=== PATIENT | male | born 1975 | race African-American/Black ===

== ENCOUNTER 2021-04-02 12:10 | Inpatient (IN) | payer OTHER ==
[~2021-04-02] VITALS: Ht 188 cm; Wt 74.8 kg
[2021-04-02] VITALS (48 sets, daily range): BP systolic 55–168; BP diastolic 38–110
--- NOTE | ~2021-04-02 | EKG ---
[facility] [place] [employer] [employer] [address] ELECTROCARDIOGRAM REPORT Name: AMADOR CEDILLO Room #: 243-P ADM IN M.R.#: [id number] Admission: 04/02/21 Attend Phys: Violetta Claire Discharge: Date of : 75 Report #: [id number] [facility] ED Test Date: 2021-04-02 Test Time: 13:44:42 Pat Name: AMADOR CEDILLO Department: Room: 243 P Gender: M Institution Director: KHADAR : 1975 Requested By: Vidal Nath Order Number: [id number] MD: Measurements Intervals [place] Rate: 89 P: 76 MA: 178 QRS: 76 QRSD: 131 T: 63 QT: 435 QTc: 530 Interpretive Statements Sinus rhythm Nonspecific intraventricular conduction delay Nonspecific T abnrm, anterolateral leads No previous ECG available for comparison [email or web address] By: 1344 1344 Epiphany MD Mendoza /EPI
[2021-04-02 13:55] LABS: HEMATOCRIT 34.5 % (42.0-52.0); HEMOGLOBIN 11.5 gm/dL (14.0-18.0); MCH 32.6 pg (26.0-34.0); MCHC 33.5 g/dL (28.0-37.0); MCV 97.4 fL (80.0-100.0); PLATELET COUNT 524 thou/uL (150-400); RBC 3.54 mil/uL (4.50-6.00); RDW 14.1 % (10.5-14.5); WBC 3.5 thou/uL (4.0-11.0)
[2021-04-02 14:07] LABS: ALBUMIN 1.9 g/dL (3.4-5.0); CALCIUM 7.6 mg/dL (8.5-10.1); CREATININE 12.2 mg/dL (0.7-1.3); TOTAL BILIRUBIN 13.4 mg/dL (0.2-1.0)
[2021-04-02 14:10] LABS: POTASSIUM 7.6 mmol/L (3.5-5.1)
[2021-04-02 14:15] LABS: HCO3 6.4 mmol/L (22.0-26.0); PO2 83.8 mmHg (80.0-100.0)
[2021-04-02 14:16] LABS: PCO2 19.9 mmHg (35.0-45.0); pH 7.124 (7.360-7.450)
[2021-04-02 15:16] LABS: APTT 29.6 Seconds (24.5-32.8); INR 1.24; PROTIME 13.4 Seconds (10.5-12.1)
[2021-04-02 15:17] LABS: ABSOLUTE NEUTROPHILS 3.3 thou/uL (1.4-8.2)
[2021-04-02 15:18] LABS: LARGE PLATELETS RARE
[2021-04-02 15:37] LABS: SALICYLATE < 2.8 mg/dL (2.8-20.0)
[2021-04-02 17:45] LABS: ALBUMIN 1.8 g/dL (3.4-5.0); CALCIUM 6.4 mg/dL (8.5-10.1); CREATININE 11.9 mg/dL (0.7-1.3); PHOSPHORUS 20.6 mg/dL (2.6-4.7)
[2021-04-02 17:50] LABS: POTASSIUM 7.6 mmol/L (3.5-5.1)
[2021-04-02 21:04] LABS: BE(vivo) -7.8 mmol/L (-2 to +3); HCO3 17.5 mmol/L (22.0-26.0); PCO2 35.1 mmHg (35.0-45.0); PO2 275.4 mmHg (80.0-100.0); sO2 99.6 % (92.0-98.0)
[2021-04-02 21:05] LABS: pH 7.316 (7.360-7.450)
--- NOTE | 2021-04-02 21:40 | NUR ---
1800-RECEIVED PT FROM E.R. INTO 246, MOVED TO 242 ALMOST IMMED,DIALYSIS PERSONEL AT BEDSIDE PRIOR TO PT'S ARRIVAL. DIALYSIS HOOKUP NOT DRAINING. PT IN ACUTE RESP DISTRESS, MOVING QUICKLY FROM 4L/NC TO 8L HIFL/NC TO BIPAP. HAD BEEN UP IN UNIT,STAT CALL PLACED & ORDER FOR INTUBATION. PT RR HIGH 40'S,VERY OBTUNDED,UNABLE TO COMPLETE A WORD WHEN HE DID RESPOND.USING ABD ACCESSORY MUSCLES & SL STERNAL RETRACTIONS NOTED.E.R. PHYSICAIN UP TO INTUBATE W/O PROBLEM,PT ELLYN WELL. OGT PLACED,STAT PCXR DONE. CALLED & INFORMED OF STAT CONSULT.HD REMAINS IN PROGRESS,NO UF. PT'S AX TEMP 92.6,PT SHAKING & CHILLING ON ARRIVAL INTO ICU. WARM BLANKETS THEN ALON HUGGER APPLIED.CARE TURNED OVER TO ONCOMING RN.--VW
--- NOTE | 2021-04-02 21:55 | NUR ---
VASCULAR ACCESS CONSULTED FOR IJ PLACEMENT. CONSENT SIGNED AND TIMEOUT PREFORMED WITH JEMIMA BARNES PRIOR TO START. 6 FR TRIPLE LUMEN IJ PLACED WITHOUT DIFFICULTY. GUIDEWIRE REMOVED INTACT. PATIENT TOLERATED WELL. ALL LUMENS FLUSH AND DRAW WELL. POSITIVE BILATERAL LUNG SLIDE POST INSERTION. X-RAY CONFIRMED PLACEMENT. OKAY TO USE IJ.
[2021-04-03] VITALS (99 sets, daily range): BP systolic 84–186; BP diastolic 46–95
--- NOTE | 2021-04-03 00:22 | NUR ---
ASSUMED CARE OF PT AT 1899. SPOKE TO PT MOTHER JAXON AT 2049. INFORMED HER OF PT STATUS. OBTAINED VERBAL CONSENT FOR CENTRAL LINE. WILL CONTINUE POC.
--- NOTE | 2021-04-03 00:30 | NUR ---
DR DAVIS AND DR BRAR AT BEDSIDE. NEW ORDERS RECIEVED AND IMPLEMENTED.
[2021-04-03 03:10] LABS: URINE BILIRUBIN 2+ (Negative); URINE BLOOD 1+ (Negative); URINE CLARITY SL CLOUDY; URINE COLOR YELLOW; URINE GLUCOSE-RANDOM* TRACE (Negative); URINE KETONES NEGATIVE (Negative); URINE LEUKOCYTES-REFLEX NEGATIVE (Negative); URINE NITRITE-REFLEX NEGATIVE (Negative); URINE PROTEIN (DIPSTICK) 3+ (Negative); URINE SPECIFIC GRAVITY >= 1.030 (1.005-1.035)
[2021-04-03 04:33] LABS: AMP/METHAMP Negative (Negative); BARBITURATES Negative (Negative); BENZODIAZEPINES Negative (Negative); COCAINE Negative (Negative); METHADONE Negative (Negative); OPIATES Negative (Negative); PCP Negative (Negative)
[2021-04-03 04:39] LABS: BACTERIA-REFLEX 1-9 Few /HPF (None Seen); CASTS None Seen /LPF (None Seen); MUCUS 4-6 Moderate strn/LPF (None Seen); SQUAMOUS 4-10 Moderate /LPF (0-3); URIC ACID CRYSTALS 0-3 Few /LPF (None Seen); URINE RBC 3-10 Few /HPF (NONE SEEN); URINE WBC-REFLEX 0-5 Rare /HPF (0-5)
[2021-04-03 05:20] LABS: BE(vivo) -10.8 mmol/L (-2 to +3); HCO3 15.6 mmol/L (22.0-26.0); PCO2 36.2 mmHg (35.0-45.0); PO2 81.3 mmHg (80.0-100.0); pH 7.251 (7.360-7.450); sO2 94.4 % (92.0-98.0)
[2021-04-03 05:30] LABS: INR 1.1; PROTIME 11.9 Seconds (10.5-12.1)
[2021-04-03 05:32] LABS: HEMOGLOBIN 9.7 gm/dL (14.0-18.0); WBC 2.3 thou/uL (4.0-11.0)
[2021-04-03 05:34] LABS: HEMATOCRIT 27.5 % (42.0-52.0); MCH 33.7 pg (26.0-34.0); MCHC 35.2 g/dL (28.0-37.0); MCV 95.7 fL (80.0-100.0); RBC 2.87 mil/uL (4.50-6.00); RDW 13.9 % (10.5-14.5)
[2021-04-03 06:04] LABS: PLATELET COUNT 443 thou/uL (150-400)
[2021-04-03 06:46] LABS: ALBUMIN 1.5 g/dL (3.4-5.0); CALCIUM 6.7 mg/dL (8.5-10.1); MAGNESIUM 2.4 mg/dL (1.8-2.4); TOTAL BILIRUBIN 10.6 mg/dL (0.2-1.0)
[2021-04-03 06:47] LABS: CREATININE 7.8 mg/dL (0.7-1.3)
[2021-04-03 06:48] LABS: POTASSIUM 6.1 mmol/L (3.5-5.1)
--- NOTE | 2021-04-03 07:43 | EKG ---
[place] [address] [place] [address] ELECTROCARDIOGRAM REPORT Name: AMADOR CEDILLO Room #: 243-P ADM IN M.R.#: [id number] Admission: 04/02/21 Attend Phys: Violetta Claire Discharge: Date of : 75 Report #: [id number] [facility] Test Date: 2021-04-02 Test Time: 21:57:27 Pat Name: AMADOR CEDILLO Department: Room: [facility] Gender: M Promos Executive Producer: : 1975 Requested By: Katherine Lim Order Number: [id number] MD: Roddy Garcia Measurements Intervals [place] Rate: 136 P: 93 ME: 122 QRS: 84 QRSD: 86 T: 38 QT: 284 QTc: 428 Interpretive Statements Sinus tachycardia LAE, consider biatrial enlargement No previous ECG available for comparison Electronically Signed On 04-03-2021 7:43:07 PHP WEB DEVELOPER by Roddy Garcia [email or web address] <ELECTRONICALLY SIGNED> By: Roddy Garcia MD, [facility] 04/03/21 0743 2157 2157 Roddy Garcia MD, FACAdriana /EPI
[2021-04-03 07:55] LABS: APTT 29.1 Seconds (24.5-32.8)
[2021-04-03 12:51] LABS: CALCIUM 7.4 mg/dL (8.5-10.1); MAGNESIUM 1.8 mg/dL (1.8-2.4)
[2021-04-03 14:24] LABS: ABSOLUTE NEUTROPHILS 1.1 thou/uL (1.4-8.2)
[2021-04-03 14:25] LABS: ANISOCYTOSIS 2+; POIKILOCYTOSIS 2+; TARGET CELLS 1+
[2021-04-03 14:26] LABS: MACROCYTES 2+
--- NOTE | 2021-04-03 17:11 | NUR ---
PT ADMITTED RELATED TO SEPSIS, PNEUMONIA, NORMA. CM REVIEWED CHART AND SPOKE WITH CARE TEAM. PT'S CARE DISCUSSED IN ICU ROUNDS THIS DAY. PT IS INTUBATED AND SEDATED. PT TO HAVE CT ABD AND PELVIS THIS DAY. ULTRASOUND AND THORACENTESIS. PT'S FIO2 60% PEEP TO BE INCREASED TO 8. PT'S MOTHER IS THE BEST CONTACT NURSING HAS SPOKEN WITH HER. CM FOLLOWING.
--- NOTE | 2021-04-03 18:48 | HC ---
[facility] [place] [address] CONSULTATION Name: AMADOR CEDILLO Room #: 243-P ADM IN M.R.#: [id number] Admission: 04/02/21 Attend Phys: Violetta Claire Discharge: Date of : 75 Report #: [id number] THIS REPORT FOR: cc: FAM - No family physician/PCP FAM - No family physician/PCP Brandon Coleman MD ~ DATE OF SERVICE: 04/02/2021 INFECTIOUS DISEASE CONSULTATION REASON FOR CONSULTATION: I was asked to evaluate concerning respiratory failure and sepsis. HISTORY OF PRESENT ILLNESS: The patient is a 45-year-old who presents with a 2-week history of generalized weakness and dyspnea. No report of fever or chills. He does have underlying history of asthma, alcohol abuse, marijuana abuse and tobacco use. The patient was intubated and sedated, unable to give any further details. History was discussed with nursing staff, respiratory therapy staff at the bedside. The patient was found to be in acute renal failure and underwent acute dialysis today. Respiratory failure worsened and now intubated on 100% FiO2. Chest x-ray showed dense right lower lobe pulmonary infiltrate with possible effusion. There has been a moderate amount of tracheal secretions. No sample has been sent yet for culture. He was placed on broad antibiotic coverage. PAST MEDICAL HISTORY: Asthma and alcohol abuse. ALLERGIES: None known. MEDICATIONS: As noted on his MAR, which were reviewed. FAMILY HISTORY: No family history available. SOCIAL HISTORY: I have been able to obtain includes tobacco use, marijuana use, alcohol abuse. Unclear if he has employment or any other family members available. REVIEW OF SYSTEMS: The patient was unable to give any details. He does have oral intubation and oral gastric tube to suction. He has a right IJ dialysis catheter in place. Indwelling Bautista catheter. He has peripheral IVs in place. He is now on IV sedation. PHYSICAL EXAMINATION: GENERAL: He was hypothermic, hemodynamically stable. He was sedated. HEENT: Scleral icterus. Mouth without mucositis. SKIN: Without rash or decubitus. No palpable adenopathy. [facility] [address] [place] [address] CONSULTATION Name: AMADOR CEIDLLO Room #: 243-P ADM IN M.R.#: [id number] Admission: 04/02/21 Attend Phys: Violetta Claire Discharge: Date of : 75 Report #: [id number] NECK: Supple. LUNGS: Consolidation in the right base and mid chest. HEART: Regular, without murmur. ABDOMEN: Soft. Liver edge was palpable. No other masses appreciated. External genitalia without mass or lesion. He had indwelling Bautista catheter. EXTREMITIES: Without clubbing, cyanosis or edema. Was able to move all extremities and is currently in restraints. LABORATORY DATA: Reviewed, noting sodium of 122, creatinine of 12.2, bilirubin of 13.4. Hemoglobin 11.5, white count of 3500 with 29% bands. Influenza and COVID screening negative. Chest x-ray, right lower lobe consolidation. Cultures are currently pending. IMPRESSION: A 45-year-old with multisystem failure, right lower lobe consolidation. I suspect aspiration, community-acquired pneumonia. Acute kidney injury in addition to liver failure and alcohol abuse, suspecting hepatorenal syndrome. Underlying asthma and polysubstance abuse. RECOMMENDATION: We will continue with broad antibiotic coverage adjusted for his renal failure. Obtain blood and sputum cultures. Further assess chest cavity for evidence of pleural effusion on the right. Aspirate if possible for culture. Continue to monitor in the ICU. Full support. Alcohol withdrawal. Monitoring. Dialysis as necessary. The patient has been evaluated by Pulmonary Critical Care and Nephrology. I have discussed with ICU team regarding treatment approach. <ELECTRONICALLY SIGNED> By: Brandon Coleman MD 04/03/21 1848 10 0130 Brandon Coleman MD /nt
[2021-04-04] VITALS (92 sets, daily range): BP systolic 100–142; BP diastolic 56–89
[2021-04-04 03:06] LABS: HAV IgM AB (ANTI-HAV IgM) Negative (Negative); HEPATITIS B SURFACE AG Negative (Negative)
[2021-04-04 04:06] LABS: HEP B SURFACE Ab(ANTI-HBS Non Reactive (()); HEPATITIS B SURFACE AG Negative (Negative); HEPATITIS C VIRUS AB <0.1 (0.0-0.9)
[2021-04-04 06:15] LABS: HEMATOCRIT 25.5 % (42.0-52.0); HEMOGLOBIN 8.8 gm/dL (14.0-18.0); MCH 32.6 pg (26.0-34.0); MCHC 34.5 g/dL (28.0-37.0); MCV 94.4 fL (80.0-100.0); PLATELET COUNT 408 thou/uL (150-400); RDW 13.9 % (10.5-14.5)
[2021-04-04 06:21] LABS: WBC 11.8 thou/uL (4.0-11.0)
[2021-04-04 06:45] LABS: CALCIUM 7.4 mg/dL (8.5-10.1); POTASSIUM 5.2 mmol/L (3.5-5.1)
[2021-04-04 07:49] LABS: ABSOLUTE NEUTROPHILS 11.2 thou/uL (1.4-8.2); METAMYELOCYTES 2 %; PLATELET ESTIMATE NORMAL; TARGET CELLS 2+
[2021-04-04 08:02] LABS: HEPATITIS C VIRUS AB <0.1
[2021-04-04 09:23] LABS: ALBUMIN 1.4 g/dL (3.4-5.0); DIRECT BILIRUBIN 6.5 mg/dL (<0.1-0.2); TOTAL PROTEIN 6.8 g/dL (6.4-8.2)
[2021-04-04 09:39] LABS: INR 1.04; PROTIME 11.3 Seconds (10.5-12.1)
--- NOTE | 2021-04-04 11:50 | EKG ---
[place] [address] [facility] [place] [address] ELECTROCARDIOGRAM REPORT Name: AMADOR CEDILLO Room #: 243- ADM IN M.R.#: [id number] Admission: 04/02/21 Attend Phys: Violetta Claire Discharge: Date of : 75 Report #: [id number] [facility] ED Test Date: 2021-04-02 Test Time: 13:44:42 Pat Name: AMADOR CEDILLO Department: Room: 243 P Gender: M Oil House Attendant: KHADAR : 1975 Requested By: Katherine Lim Order Number: [id number] MD: Brayan El Measurements Intervals [place] Rate: 89 P: 76 WV: 178 QRS: 76 QRSD: 131 T: 63 QT: 435 QTc: 530 Interpretive Statements Sinus rhythm Nonspecific intraventricular conduction delay No previous ECG available for comparison Electronically Signed On 04-04-2021 11:50:02 GEOLOGICAL SPECIALIST by Brayan El [email or web address] <ELECTRONICALLY SIGNED> By: Brayan El MD, [facility] 04/04/21 1150 1344 1344 Brayan El MD, FAC /EPI
--- NOTE | 2021-04-04 11:55 | EKG ---
[place] [address] [facility] [place] [address] ELECTROCARDIOGRAM REPORT Name: AMADOR ECDILLO Room #: 243- ADM IN M.R.#: [id number] Admission: 04/02/21 Attend Phys: Violetta Claire Discharge: Date of : 75 Report #: [id number] [facility] Test Date: 2021-04-03 Test Time: 12:33:05 Pat Name: AMADOR CEDILLO Department: Room: 243 P Gender: M Foundry Worker: DEDRA : 1975 Requested By: Vidal Nath Order Number: [id number] MD: Brayan El Measurements Intervals [place] Rate: 126 P: 77 NE: 113 QRS: 55 QRSD: 85 T: 29 QT: 325 QTc: 471 Interpretive Statements Sinus tachycardia Left ventricular hypertrophy Compared to ECG 04/02/2021 21:57:27 No significant change was found Electronically Signed On 04-04-2021 11:55:03 CEMENT FINISHER HELPER by Brayan El [email or web address] <ELECTRONICALLY SIGNED> By: Brayan El MD, [facility] 04/04/21 1155 1233 1233 Brayan El MD, FACC /EPI
[2021-04-04 12:02] LABS: BE(vivo) 5.1 mmol/L (-2 to +3); HCO3 29.9 mmol/L (22.0-26.0); PO2 66.8 mmHg (80.0-100.0); sO2 93.8 % (92.0-98.0)
--- NOTE | 2021-04-04 12:18 | 2DMMODE ---
[facility] [address] [place] [address] 2 D/M-MODE ECHOCARDIOGRAM Name: AMADOR CEDILLO Room #: 243-P ADM IN M.R.#: [id number] Admission: 04/02/21 Attend Phys: Violetta Claire Discharge: Date of : 75 Report #: [id number] THIS REPORT FOR: cc: JERE - No family physician/PCP FAM - No family physician/PCP Brayan El MD [facility] ~ APPROVED REPORT Study performed: 04/04/2021 10:23:30 EXAM: Comprehensive 2D, Doppler, and color-flow Echocardiogram Patient Location: Bedside Room #: 243 Status: on-call BSA: 2.08 HR: 87 bpm BP: 108/69 mmHg Rhythm: NSR Other Information Study Quality: Adequate Technically limited study due to patient on ventilator, low parasternal window. Risk Factors: Cardiac Risk Factors: Smoking, ETOH Indications Sepsis Respiratory Failure 2D Dimensions IVSd: 13.69 (7-11mm) LVOT Diam: 20.00 (18-24mm) LVDd: 39.58 mm PWd: 14.40 (7-11mm) LVDs: 29.42 (25-40mm) Aortic Root: 30.64 mm LV Single Plane 4CH: 60.01 % LV Single Plane 2CH: 57.10 % Biplane EF: 59.8 % Volumes Left Atrial Volume (Systole) Single Plane 4CH: 29.39 mL Single Plane 2CH: 35.03 mL [facility] [address] [place] [address] 2 D/M-MODE ECHOCARDIOGRAM Name: AMADOR CEDILLO Room #: 243-P [facility] IN M.R.#: [id number] Admission: 04/02/21 Attend Phys: Violetta Wang Discharge: Date of : 75 Report #: [id number] Index: 19.00 mL/m2 Aortic Valve AoV Peak Mamadou.: 1.29 m/s AO Peak Gr.: 6.67 mmHg LVOT Max P.86 mmHg LVOT Max V: 1.21 m/s AME Vmax: 2.96 cm2 Mitral Valve E/A Ratio: 1.5 MV Decel. Time: 214.87 ms MV E Max Mamaodu.: 0.61 m/s MV A Mamadou.: 0.42 m/s MV PHT: 62.31 ms IVRT: 62.28 ms TDI E/Lateral E': 7.63 E/Medial E': 7.63 Medial E' Mamadou.: 0.08 m/s Lateral E' Mamadou.: 0.08 m/s Pulmonary Valve PV Peak Mamadou.: 0.96 m/s PV Peak Gr.: 3.72 mmHg Tricuspid Valve TR Peak Mamadou.: 1.96 m/s TR Peak Gr.: 15.32 mmHg Left Ventricle The left ventricle is normal size. There is normal LV segmental wall motion. Moderate concentric left ventricular hypertrophy. The left ventricular systolic function is normal. The left ventricular ejection fraction is within the normal range. Intracavitary gradient of approximately 50 mmHg, probably from the hyperdynamic LV and LVH LVEF is >70%. The left ventricular diastolic function is normal. Right Ventricle The right ventricle is normal size. The right ventricular systolic function is normal. Atria The left atrium size is normal. The right atrium size is normal. Aortic Valve [facility] [address] [place] [address] 2 D/M-MODE ECHOCARDIOGRAM Name: AMADOR CEDILLO Room #: 243-P ADM IN M.R.#: [id number] Admission: 04/02/21 Attend Phys: Violetta Wang Discharge: Date of : 75 Report #: [id number] The aortic valve is normal in structure. No aortic regurgitation is present. There is no aortic valvular stenosis. Mitral Valve The mitral valve is normal in structure. There is no mitral valve regurgitation noted. No evidence of mitral valve stenosis. Tricuspid Valve The tricuspid valve is normal in structure. Trace tricuspid regurgitation. Unable to assess PA pressure. Pulmonic Valve The pulmonary valve is normal in structure. There is no pulmonic valvular regurgitation. Great Vessels The aortic root is normal in size. Ascending aorta is not well visualized. Pt. is on a ventilator. Pericardium There is no pericardial effusion. <Conclusion> The left ventricular systolic function is hyperdynamic LVEF is >70%. The left ventricular ejection fraction is within the normal range. Intracavitary LV gradient of approximately 50 mmHg, probably from the hyperdynamic LV and LVH There is normal LV segmental wall motion. Moderate concentric left ventricular hypertrophy. The aortic valve is normal in structure. No aortic regurgitation or stenosis. The mitral valve is normal in structure. No mitral valve regurgitation. Unable to assess pulmonary artery pressure. There is no pericardial effusion. <ELECTRONICALLY SIGNED> By: Brayan El MD, FACC 04/04/211216 16 16 Brayan El MD, FACC /INF
--- NOTE | 2021-04-04 13:02 | NUR ---
SPOKE WITH PATIENT'S MOTHER, JAXON, FROM [id number] AND SHE WAS UPDATED AND EDUCATED ON THE PATIENT'S CONDITION AND PLAN OF CARE.
--- NOTE | 2021-04-04 18:18 | NUR ---
WEANING DOWN LEVOPHED. ALL SEDATION IS OFF, SLIGHT WITHDRAWAL TO DEEP NAIL BED PRESSURE. +COUGH AND GAG. WILL CONTINUE TO MONITOR.
[2021-04-05] VITALS (36 sets, daily range): BP systolic 97–135; BP diastolic 53–77
[2021-04-05 10:27] LABS: BE(vivo) 0.3 mmol/L (-2 to +3); PCO2 34.9 mmHg (35.0-45.0); PO2 65.8 mmHg (80.0-100.0); pH 7.456 (7.360-7.450); sO2 94.1 % (92.0-98.0)
--- NOTE | 2021-04-05 20:05 | NUR ---
FAMILY AT BEDSIDE THROUGH OUT THE DAY. PATIENT REMAINED HEMODYNAMICALLY STABLE. 1 [address] CPAP TRAIL WITH SEDATION VACATION. PATIENT BECAME RESTLESS WITH STIMULATION AND PLACED BACK ON SEDATION TO TOLERATE VENT. PLAN FOR DIALYSIS TOMORROW 04/06. MINIMAL URINE OUTPUT, THICK AND BROWN IN COLOR. REPORT GIVEN TO ON COMING NURSE.
[2021-04-06] VITALS (26 sets, daily range): BP systolic 105–141; BP diastolic 68–87
[2021-04-06 05:26] LABS: ALBUMIN 1.4 g/dL (3.4-5.0); CALCIUM 8.9 mg/dL (8.5-10.1); PHOSPHORUS 11.5 mg/dL (2.6-4.7); POTASSIUM 4.4 mmol/L (3.5-5.1)
[2021-04-06 05:30] LABS: CREATININE 6.7 mg/dL (0.7-1.3)
--- NOTE | 2021-04-06 09:55 | NUR ---
Nutrition: If pt not extubated today, REC initiate Nepro tube feeds to reach goal rate of 50 mL/hr.
[2021-04-06 13:40] LABS: BE(vivo) 1.8 mmol/L (-2 to +3); HCO3 24.8 mmol/L (22.0-26.0); PCO2 32.2 mmHg (35.0-45.0); PO2 87.9 mmHg (80.0-100.0); pH 7.504 (7.360-7.450); sO2 97.5 % (92.0-98.0)
--- NOTE | 2021-04-06 13:51 | NUR ---
POST CPAP ABG RESULTS COMMUNICATED TO DR. JACOB
--- NOTE | 2021-04-06 15:21 | NUR ---
extubated by rt at [address] skelton orders
[2021-04-06 21:05] LABS: SYPHILIS AB Non Reactive (Non Reactive)
[2021-04-07] VITALS (24 sets, daily range): BP systolic 113–152; BP diastolic 68–84
[2021-04-07 05:17] LABS: HEMATOCRIT 23.2 % (42.0-52.0); HEMOGLOBIN 7.9 gm/dL (14.0-18.0); MCH 32.4 pg (26.0-34.0); MCHC 34.1 g/dL (28.0-37.0); MCV 94.9 fL (80.0-100.0); RBC 2.45 mil/uL (4.50-6.00); RDW 13.9 % (10.5-14.5); WBC 6.2 thou/uL (4.0-11.0)
[2021-04-07 05:31] LABS: ALBUMIN 1.3 g/dL (3.4-5.0); CALCIUM 8.5 mg/dL (8.5-10.1); PHOSPHORUS 7.9 mg/dL (2.5-4.9); TOTAL BILIRUBIN 2.4 mg/dL (0.2-1.0); TOTAL PROTEIN 6.2 g/dL (6.4-8.2)
[2021-04-07 05:37] LABS: INR 1.07; PROTIME 11.6 Seconds (10.5-12.1)
[2021-04-07 05:59] LABS: CREATININE 4.8 mg/dL (0.7-1.3)
[2021-04-07 09:55] LABS: BE(vivo) 2.7 mmol/L (-2 to +3); HCO3 26.4 mmol/L (22.0-26.0); PCO2 36.9 mmHg (35.0-45.0); PO2 68.9 mmHg (80.0-100.0); pH 7.473 (7.360-7.450); sO2 94.9 % (92.0-98.0)
--- NOTE | 2021-04-07 10:25 | NUR ---
Dr. Coleman notified on patient's ABG and mental status this morning.
[2021-04-07 15:07] LABS: HIV 1 AB Positive (Negative); HIV 2 AB Negative (Negative); HIV ANTIBODY Reactive (Non Reactive)
--- NOTE | 2021-04-07 16:56 | NUR ---
CM REVIEWED CHART AND SPOKE WITH NURSE. PT'S CARE WAS DISCUSSED IN ICU ROUNDS THIS AM. PT WAS EXTUBATED YESTERDAY. PT IS SEDATED AND IN RESTRAINTS WHEN SEDATION IS REDUCED HE BECOMES ANXIOUS AND PULLS AT THINGS. PT IS NPO ST SAW PT. PT IS ON BIPAP FACESHIELD AT 50%. PT'S MOTHER VISITED THIS AFTERNOON. CM FOLLOWING
--- NOTE | 2021-04-07 18:43 | NUR ---
Pt neurologically drowsy and lethargic. Pt pulling the facesheild off the face and try to sit up in bed and roll from side to side and pull the wires. Pt not opening eyes to verbal command nor following commands. Pt scored 11 on the CIWA protoccol. Pt was given prn activan and was titrated up the precedex gtt. This RN could not get temperature on the patient. Rectal probe was inserted and was not accurate. Pt was kept on lynnette hugger and finally temperature was up to 97.[address] Coleman notified about patient mentation and desat episode. ABG was obtained and ABG was within the normal limits. Dr. Coleman notified about the ABG. No dialysis today per Dr. Puckett. Pt urine output adequate today. continue to monitor.
[2021-04-08] VITALS (23 sets, daily range): BP systolic 112–151; BP diastolic 69–95
[2021-04-08 06:38] LABS: ALBUMIN 1.5 g/dL (3.4-5.0); CALCIUM 8.7 mg/dL (8.5-10.1); CREATININE 4.4 mg/dL (0.7-1.3); PHOSPHORUS 9.1 mg/dL (2.5-4.9); POTASSIUM 3.6 mmol/L (3.5-5.1)
--- NOTE | 2021-04-08 14:28 | NUR ---
THIS RN SPOKE WITH TERESA, THE PATIENT'S FATHER, OVER THE PHONE FROM [phone] AND HE WAS UPDATED AND EDUCATED ON THE PATIENT'S CONDITION AND PLAN OF CARE.
--- NOTE | 2021-04-08 17:57 | NUR ---
PATIENT SLOWLY PROGRESSING TOWARDS THE PLAN OF CARE EVIDENCED BY IMPROVING MENTAL STATUS AND DECREASED NEED FOR PRECEDEX.
[2021-04-09] VITALS (15 sets, daily range): BP systolic 139–161; BP diastolic 90–104
--- NOTE | 2021-04-09 00:38 | NUR ---
SPOKE TO PT'S SISTER AND MOTHER, JAXON, AT 2121 AND UPDATED THEM ON PT STATUS. THEY EXPRESSED THAT THEY WISH TO SPEAK TO A PHYSICIAN TOMORROW REGARDING PT'S PROGRESS. THIS RN SUGGESTED THEY BE HERE TOMORROW AT 0800. WILL PASS ALONG TO AM RN THAT FAMILY WISHES TO BE CALLED.
[2021-04-09 04:28] LABS: HCO3 26.1 mmol/L (22.0-26.0); PCO2 34.4 mmHg (35.0-45.0); PO2 79.4 mmHg (80.0-100.0); pH 7.498 (7.360-7.450); sO2 96.7 % (92.0-98.0)
[2021-04-09 05:26] LABS: ABSOLUTE NEUTROPHILS 6.4 thou/uL (1.4-8.2); BASOPHILS 0.1 % (0.0-2.0); EOSINOPHILS 0.1 % (0.0-3.0); HEMATOCRIT 27.9 % (42.0-52.0); HEMOGLOBIN 9.2 gm/dL (14.0-18.0); LYMPHOCYTES 1.8 % (24.0-44.0); MCH 31.9 pg (26.0-34.0); MCHC 32.8 g/dL (28.0-37.0); MCV 97.3 fL (80.0-100.0); MONOCYTES 1.5 % (1.0-8.0); PLATELET COUNT 322 thou/uL (150-400); POLYS 96.5 % (36.0-66.0); RBC 2.87 mil/uL (4.50-6.00); RDW 13.9 % (10.5-14.5); WBC 6.6 thou/uL (4.0-11.0)
[2021-04-09 05:43] LABS: ALBUMIN 1.7 g/dL (3.4-5.0); CALCIUM 8.8 mg/dL (8.5-10.1); PHOSPHORUS 7.7 mg/dL (2.5-4.9); TOTAL BILIRUBIN 2.2 mg/dL (0.2-1.0)
[2021-04-09 06:01] LABS: CREATININE 3.1 mg/dL (0.7-1.3)
[2021-04-09 06:02] LABS: POTASSIUM 2.9 mmol/L (3.5-5.1)
--- NOTE | 2021-04-09 12:00 | NUR ---
Cm reviewed chart and spoke with care team this day. PT's care discussed during ICU rounds. It was indicted that pt is on micafungin, penicillin g. PT is on 4L oxygen per nasal cannula. Cm called and spoke with pt's mother Bernie Garcia . Cm role introduced. She indicated that pt had lived alone in a ground floor apartment prior to admission. 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 She indicated that he is uninsured and doesn't have a pcp as far as she knows of. PT's mother indicted that pt has an adult son with a learning disability and a sister. Cm following regarding dc planning needs.
--- NOTE | 2021-04-09 20:19 | NUR ---
0700: ASSUMED CARE OF PATIENT AT THIS TIME. PT RESTING IN BED, PRECEDEX GTT INFUSING, BILATERAL WRIST RESTRAINTS IN PLACE. PT FOLLOWING COMMANDS, WILL ATTEMPT TO WEAN PRECEDEX TOLERATED BY PT. ASSESSMENT COMPLETE DOCUMENTED. VSS. 0900: PT CONTINUES TO FOLLOW COMMMANDS, NO IMPULSIVITY NOTED, PT ABLE TO VEBALIZE NEED FOR CONTINUATION OF LINES/HENDERSON AND REPORTS HE WILL NOT TOUCH THEM/PULL THEM. RESTRAINTS AND PRECEDEX GTT OFF AT THIS TIME. 1900: NO ACUTE EVENTS THROUGHOUT REMAINDER OF SHIFT. VSS DOCUMENTED. PT DENIES PAIN THROUGHOUT SHIFT. PT WITH IMPROVEMENT OF SPEECH AND MENTATION SHIFT PROGRESSED. FAMILY VISITED TODAY. PER RENAL NOTE, HOPING FOR NO FURTHER NEED FOR HD. PLAN FOR DISCONTINUATION OF HD CATHETER AND IJ IF THIS OCCURS.
[2021-04-10] VITALS (14 sets, daily range): BP systolic 129–153; BP diastolic 92–105
--- NOTE | 2021-04-10 06:06 | NUR ---
PT RESTING QUIETLY, NOT IMPULSIVE, FOLLOWS COMMANDS, TURNING SELF IN BED, VSS, NO C/O PAIN, 0530 WALKED IN AND FOUND PT SITTING AT FOOT OF BED WITH LEGS DANGLING THRU BED RAIL, WHEN ASKED WHERE HE WAS GOING HE STATED HE WAS GOING HOME, PT ABLE TO SCOOT HIMSELF BACK UP IN THE BED BUT SATS DROPPED TO 87 O2 TURNED UP TO 4L/NC AND SATS UP TO 92/93 %, STATES HE DIDN'T WANT TO PULL ANY LINES OUT BUT HES NOT FEELING STRONG ENOUGH YET TO GO HOME. BED ALARM PLACED BACK ON AND PT RESTING QUIETLY, IV FLUIDS CON'T TO INFUSE IN L IJ, WILL CON'T TO MONITOR PER PPOC.
[2021-04-10 06:19] LABS: ALBUMIN 1.7 g/dL (3.4-5.0); CALCIUM 8.7 mg/dL (8.5-10.1); CREATININE 2.2 mg/dL (0.7-1.3); POTASSIUM 3.2 mmol/L (3.5-5.1)
--- NOTE | 2021-04-10 11:06 | NUR ---
DR. MEREDITH AT BEDSIDE. VERBAL ORDER TO TRANSFER PT TO MS/TELE. TELLOAY TO DC HENDERSON CATHETER, HD CATHETER, AND IJ PER DR. MEREDITH. RN TO CONTACT IV THERAPY FOR DISCONTINUATION OF CVCS.
--- NOTE | 2021-04-10 12:31 | NUR ---
VAT CONSULTED TO REMOVE HIS RT IJ HD CATH AND LT IJ CL. BOTH REMOVED WITHOUT INCIDENT PER PROTOCOL
--- NOTE | 2021-04-10 17:52 | NUR ---
pt arrived to room 434 from ICU. Pt is A & O x4. Pt robel has IV fluids. Pt is 4 L of 02 per nasal cannula. Pt is able to make needs known. Pt denies pain/discomfort
--- NOTE | 2021-04-10 18:22 | NUR ---
0700: ASSUMED CARE OF PATIENT AT THIS TIME. REPORT RECEIVED BY OFFGOING RN. ASSESSMENT COMPLETE DOCUMENTED. DR. PIMENTEL AT BEDSIDE, VERBAL ORDERS TO HAVE HD CATHETER DISCONTINUED AND INCREASE D5 INFUSION TO 200ML/HR. 0845: INTERDISCIPLINARY ROUNDS OCCURRED, PLAN FOR POSSIBLE TRANSFER TO FLOOR TODAY 0900: SOLID WASTE DIVISION SUPERVISOR AT BEDSIDE; NEW ORDERS FOR MECHANICAL SOFT DIET/NECTAR THICKENED FLUIDS 1100: DISCUSSED POC WITH DR. MEREDITH. PT PROGRESSING TOWARDS POC TO TRANSFER NOW THAT OFF PRECEDEX GTT AND HD CATH TO BE REMOVED. VERBAL ORDER TO DC LEFT IJ AND MAINTAIN PERIPHERALS, OKAY TO DC HENDERSON CATHETER 1400: PT AT BEDSIDE AND PT UP TO CHAIR 1630: PT TRANSFERRED TO ROOM 434 AT THIS TIME. REPORT PROVIDED TO RN ON NEW UNIT, FAMILY AWARE OF TRANSFER THEY WERE VISITING DURING THIS TIME.
[2021-04-11 00:28] VITALS: BP 156/93
[2021-04-11 06:09] LABS: HEMATOCRIT 29.9 % (42.0-52.0); HEMOGLOBIN 9.6 gm/dL (14.0-18.0); MCH 31.9 pg (26.0-34.0); MCV 99.8 fL (80.0-100.0); RDW 13.8 % (10.5-14.5)
[2021-04-11 06:18] LABS: ALBUMIN 1.9 g/dL (3.4-5.0); CALCIUM 8.3 mg/dL (8.5-10.1); CREATININE 1.7 mg/dL (0.7-1.3); PHOSPHORUS 4.1 mg/dL (2.6-4.7); POTASSIUM 3.5 mmol/L (3.5-5.1)
--- NOTE | 2021-04-11 06:28 | NUR ---
ASSUMED CARE AT 1900, PT LAYING COMFORTABLY IN BED, REPORTS NO PAIN OR DISCOMFORT, COMLIANT WITH TX, NO ADVERSE REACTION NOTED, CALL LIGHT AND PERSONAL BELOMGINGS WITHIN REACH, ON MODIFIED DIET, STAYED UP ALL NIGHT, WILL CONTINUE TO MONITOR.
[2021-04-11 07:24] VITALS: BP 148/95
--- NOTE | 2021-04-11 10:18 | NUR ---
Assumed care of pt at 0700. Pt alert but forgetful. On 4L O2. IV antibiotics infusing. Pt states she feels better. Good appetite. Call light within reach. Fall precautions in place. Will continue to monitor.
[2021-04-11 19:00] VITALS: BP 148/88
[2021-04-11 19:07] VITALS: BP 148/88
[2021-04-12 05:51] LABS: ALBUMIN 1.9 g/dL (3.4-5.0); CALCIUM 8.3 mg/dL (8.5-10.1); CREATININE 1.5 mg/dL (0.7-1.3); PHOSPHORUS 4.3 mg/dL (2.6-4.7); POTASSIUM 3.5 mmol/L (3.5-5.1)
--- NOTE | 2021-04-12 07:28 | NUR ---
PT REMAINS ON CO, RESTING COMFORTABLY LAYING IN BED, COMPLIANT TO TX, NO ADVERSE REACTION NOTED, TOILETED NEEDED, STAYED UP ALL NIGHT, A & OX 2-3 WITH CONFUSION, USES URINAL FOR ELIMINATION, CONTINUE ON IV THERAPY. WILL CONTINUE TO MONITOR.
[2021-04-12 07:35] VITALS: BP 144/113
[2021-04-12 12:52] VITALS: BP 144/113
--- NOTE | 2021-04-12 13:28 | NUR ---
ASSUMED PT CARE THIS AM. PT IS ALERT & ORIENTED X2 SELF AND TIME AND CONFUSE AT TIMES. PT HAS IV SITE ON R WRIST SALINE LOCKED. PT USES URINAL. PT IS ON ROOM AIR AT 96% SPO2. PT WANTED TO GO HOME AND REASSURED PT AND INFORMED PT THAT PT MOM WILL BE HERE TODAY. GIVEN MEDICATION WITHOUT DIFFUCULTIES. PT IS CURRENTLY ON THE BED WATCHING TV, BED ON THE LOWEST POSITION, SIDE RAILS UP, CALL LIGHT WITHIN REACH. WILL CONTINUE TO MONITOR PT. FOLLOW POC.
[2021-04-12 17:06] VITALS: BP 155/100
[2021-04-12 19:13] VITALS: BP 150/92
[2021-04-12 20:19] VITALS: BP 150/92
[2021-04-13] VITALS (23 sets, daily range): BP systolic 122–174; BP diastolic 83–111
--- NOTE | 2021-04-13 03:34 | NUR ---
UPON SHIFT REPORT, PT FAMILY VISITING AT BEDSIDE, NO REPORT OF NEEDS OR OBSERVATION OF CONCERN AT THAT TIME. UPON SHIFT ASSESSMENT, PT AOX4, RESPONDING TO ORIENTATION PROMPTS APPROPRIATELY, OTHERWISE INTERMITTENTLY FORGETFUL, INCONGRUENT AND INAPPROPRIATE CONVERSATIONS NOTED. PT DENIES PAIN AND SOB WHILE ON ROOM AIR. PT TOLERATING PO INTAKE OF FLUIDS AND MECHANICAL ALTERED GROUND DIET WITHOUT ISSUE. PT WITHOUT NAUSEA OR EMESIS. PT INCONTINENT OF URINE, INTERMITTENTLY USING URINAL AT BEDSIDE. PT RESTING IN BED THROUGHOUT SHIFT, FREQUENT REPOSITIONING ENCOURAGED, PT NOTED TO SHIFT INDEPENDENTLY. SENSATION INTACT, CAPILLARY REFILL LESS THAN 3SEC, PERIPHERAL PULSES PALPABLE IN ALL EXTREMITIES. THROUGHOUT SHIFT, PT NOTED TO BECOME RESTLESS, DIFFICULT TO CONSOLE AND REDIRECT, OBSERVED TAKING OFF NAVAL AIRCREWMAN OPERATOR AND TOUCHING STAFF ONLY BED CONTROLS. PRN SITTER UTILIZED WHEN PT RECEIVING IV ANTIBIOTICS, IV REMAINS SALINE LOCKED OTHERWISE. PT GIVEN PRN PO ATIVAN Q4HR, PRN IV HALDOL Q6HR WITH PRN IV ATIVAN Q4HR AVAILABLE. IV TO RIGHT WRIST NOTED TO CLOT OFF, PT REFUSING DISCONTINUATION OF IV, PT REFUSING NEW IV SITE AT THIS TIME. PT ENCOURAGED TO NOTIFY STAFF FOR ALL NEEDS, CALL LIGHT WITHIN REACH, BED ALARM ON, BED LOCKED IN LOWEST POSITION, ROOM REMAINS NEAR NURSES STATION, FREQUENT MONITORING WILL CONTINUE.
[2021-04-13 08:54] LABS: BE(vivo) 3.9 mmol/L (-2 to +3); HCO3 26.7 mmol/L (22.0-26.0); PCO2 33.5 mmHg (35.0-45.0); PO2 60.1 mmHg (80.0-100.0); pH 7.519 (7.360-7.450); sO2 93.6 % (92.0-98.0)
--- NOTE | 2021-04-13 08:59 | EKG ---
[place] [address] [facility] [place] [address] ELECTROCARDIOGRAM REPORT Name: AMADOR CEDILLO Room #: 435- ADM IN M.R.#: [id number] Admission: 04/02/21 Attend Phys: Violetta Claire Discharge: Date of : 75 Report #: [id number] [facility] Test Date: 2021-04-13 Test Time: 08:52:22 Pat Name: AMADOR CEDILLO Department: Room: 435 P Gender: M Gin Operator: DEDRA : 1975 Requested By: Alanis Spears Order Number: [id number] MD: Brayan El Measurements Intervals [place] Rate: 126 P: 102 UT: 90 QRS: 82 QRSD: 77 T: 257 QT: 280 QTc: 406 Interpretive Statements Sinus tachycardia LVH with secondary repolarization abnormality ST depression, consider ischemia, diffuse lds Compared to ECG 04/03/2021 12:33:05 ST (T wave) deviation now present Electronically Signed On 04-13-2021 8:59:40 CERTIFIED NURSING ASSISTANT INSTRUCTOR by Brayan El [email or web address] <ELECTRONICALLY SIGNED> By: Brayan El MD, [facility] 1259 1 Brayan El MD, [facility] /EPI
--- NOTE | 2021-04-13 09:08 | NUR ---
Pt TRANSFERRING TO ICU. WILL PLACE ON HOLD AND AWAIT NEW ORDERS TO RESUME WHEN APPROPRIATE
[2021-04-13 09:10] LABS: ABSOLUTE NEUTROPHILS 13.7 thou/uL (1.4-8.2); BASOPHILS 0.4 % (0.0-2.0); EOSINOPHILS 0.6 % (0.0-3.0); HEMATOCRIT 31.9 % (42.0-52.0); LYMPHOCYTES 2.8 % (24.0-44.0); MCHC 31.2 g/dL (28.0-37.0); MCV 102.6 fL (80.0-100.0); MONOCYTES 1.6 % (1.0-8.0); POLYS 94.6 % (36.0-66.0); RBC 3.11 mil/uL (4.50-6.00); WBC 14.5 thou/uL (4.0-11.0)
[2021-04-13 09:12] LABS: PLATELET COUNT 382 thou/uL (150-400)
[2021-04-13 09:14] LABS: CALCIUM 8.7 mg/dL (8.5-10.1); CREATININE 1.4 mg/dL (0.7-1.3); POTASSIUM 3.2 mmol/L (3.5-5.1)
[2021-04-13 09:20] LABS: ALBUMIN 2.1 g/dL (3.4-5.0); TOTAL BILIRUBIN 1.8 mg/dL (0.2-1.0); TOTAL PROTEIN 7.4 g/dL (6.4-8.2)
[2021-04-13 09:56] LABS: APTT 24.2 Seconds (24.5-32.8); INR 1.08; PROTIME 11.7 Seconds (10.5-12.1)
--- NOTE | 2021-04-13 10:00 | NUR ---
Rapid response today, anticipated transfer to icu. Discussed during los with the attending physician.
--- NOTE | 2021-04-13 11:30 | NUR ---
MACHINE WIPER CALLED THIS MORNING FOR LABORED BREATHING, INCREASED O2 NEEDS. SEE FLOWSHEET FOR DETAILS. PT TO TX TO ICU POST CHEST TUBE PLACEMENT.
--- NOTE | 2021-04-13 13:42 | NUR ---
PATIENT ARRIVED TO ICU AT APPROX 1125 THIS MORNING FROM IR AFTER HAVING A RAPID RESPONSE CALLED ON HIM DUE TO INCREASED HR, HTN, AND HIGH RESPIRATORY RATE, CXR SHOWED RIGHT SIDED PNEUMO, CHEST TUBE PLACED IN IR ON RIGHT SIDE. PT WILL OPEN EYES WHEN SHAKEN OR YELL HIS NAME, MAKES SOUNDS, REFLEXES TO PAINFUL STIMULI OTHER THAN THAT IS UNRESPONSIVE. DR. DAVIS AWARE OF PATIENT IN ICU, CVP, CENTRAL LINE PLACED. PROVIDER ALSO AWARE OF PATIENT LOW CVP, 1000ML NACL ORDERED. PATIENT BREATHING IN MID 20'S RANGE ON SIMPLE FACE MASK AT 40%. HR REMAINS IN LOW 100'S, WAS 130 ON ARRIVAL, CHEST TUBE SHOWS INTERMITTMENT BUBBLING PROVIDER AWARE. WILL CONTINUE TO FOLLOW POC.
--- NOTE | 2021-04-13 20:04 | NUR ---
0700 REPORT RECEIVED FROM PROGRAMMING ENGINEER NURSE. REPORT STATED A&0X4 WITH CONFUSION, FORGETFUL. PT IS ELOPMENT RISK, WITH A PRN SITTER IF NEEDED. NON-PRODUCTIVE COUGH REPORTED BY PROGRAMMING ENGINEER. REPORT GIVEN THAT PT IS HIV +. 0715 PT BECAME INCREASINGLY MORE AGITATED, RESTLESS, AND NOT ABLE TO STAY IN BED, IMPULSIVE. PT HAS 2LNC IN PLACE, BUT APPEARS TO BE IN A LITTLE DISTRESS. RESPIRATIONS INCREASED. DR. MEREDITH CALLED AT 0815, ATIVAN FOR ANXIETY. RESPIRATORY CALLED FOR BREATHING TREATMENT. LUNGS SOUNDED SEVERLY DIMINISHED/TIGHT. RAPID RESPONSE CALLED SHORTLY AFTER. TEAM AT BEDSIDE. DR. BERRY AND DR. MEREDITH AT BEDSIDE. ORDERS RECEIVED AND ENTERED INTO COMPUTER. IV WAS THEN PLACED, DUE TO LOSS DURING PROGRAMMING ENGINEER. NRB PLACED AT 0905, CHEST XR SHOWED PNEUMOTHORAX PER RADIOLOGIST. IR CALLED FOR STAT CHEST TUBE PLACEMENT. 926 DR[address] MEREDITH CALLED TO INFORM THAT IR WAS NOT AVAILABLE FOR AT LEAST [address] MEREDITH STATED THAT SHOULD BE OK TO WAIT. 0935 IR CALLED AGAIN TO STATE THAT IT NEEDED TO BE DONE DANY, AND NOT TO WAIT HOURS FOR PLACEMENT. 0937 ANA MARÍA COATES WAS CALLED AND UPDATED WITH PATIENT'S CONDITION, PLAN FOR CHEST TUBE PLACEMENT, AND TRANSFER TO ICU. [phone]. 0949 IR HERE FOR PATIENT. 0950 CALLED ICU FOR REPORT, NURSE NOT AVAILABLE. 1005 CALLED REPORT TO ICU NURSE, VISHNU, WHO WAS ALSO AT THE RAPID RESPONSE THAT WE CALLED. VISHNU STATED HE HAD TAKEN CARE OF PT WHILE IN ICU AND WAS FAMILIAR WITH PATIENT.
[2021-04-14] VITALS (26 sets, daily range): BP systolic 116–154; BP diastolic 72–98
--- NOTE | 2021-04-14 03:05 | NUR ---
SPOKE WITH Edin MCMANUS INDUSTRIAL MAINTENANCE REPAIRER TO COFIRM CONTINUANCE OF D10 DRIP. D10 DRIP PARAMETERS STATE TO BE GIVEN FOR BS <80. PT NPO S/P CHEST TUBE INSERTION. GIVEN VERBAL ORDERS TO CONTINUE GTT.
--- NOTE | 2021-04-14 04:45 | NUR ---
AT APPROX 0430 HENDERSON PLACED D/T PT AMS, INCONTINENCE-VOID X3 IN BED, FOR ACCURATE I/0 DOCUMENTATION, AND TO MAINTAIN SKIN INTEGRITY. PERICARE GIVEN AND PROTOCOL FOLLOWED DURING INSERTION.
[2021-04-14 05:26] LABS: HEMATOCRIT 23.6 % (42.0-52.0); MCH 33.6 pg (26.0-34.0); MCHC 32.9 g/dL (28.0-37.0); MCV 102.1 fL (80.0-100.0); RBC 2.31 mil/uL (4.50-6.00); RDW 14.8 % (10.5-14.5); WBC 6.6 thou/uL (4.0-11.0)
[2021-04-14 05:27] LABS: HEMOGLOBIN 7.8 gm/dL (14.0-18.0)
[2021-04-14 06:12] LABS: CALCIUM 8.3 mg/dL (8.5-10.1); CREATININE 1.2 mg/dL (0.7-1.3); POTASSIUM 3.3 mmol/L (3.5-5.1)
--- NOTE | 2021-04-14 08:12 | NUR ---
PT AMS/CONFUSED, DID TRY TO GET OUT OF BED A FEW TIMES, AND REMOVE MEDICAL EQUIPMENT - BUT REDIRECTABLE. PT 2L NC WITH 02 SATS 96 AND ABOVE. PT DID REMOVE N/C SEVERAL TIMES AND 02 SATS REMAINED IN HIGH 90S. RT SIDED CHEST TUBE PLACED / WITH SEROSANGUINEOUS OUTPUT NOTED SET T0 -20 WITH NO AIR LEAK. PT URINE OUTPUT ADEQUATE - ESTIMATE 775 OUTPUT FOR THE SHIFT. PT SLEPT MOST OF THE SHIFT WITH PRN ATIVAN GIVEN TWICE THROUGHOUT SHIFT. WILL CONTINUE TO MONITOR AND FOLLOW POC.
--- NOTE | 2021-04-14 15:43 | NUR ---
Cm reviewed chart and spoke with nurse. Pt's care discussed during icu rounds this day. Pt had spontaneous pneumothorax (04/13) pt had right plural pigtail placed. Pt is on RA. Pt on mechsft diet and nectar thick liquids. Dr. shah indicated he had spoken with pt's Mother and Father who are divorded yesterday. PT, OT, and ST orders for cog were entered this day. Care team indicating that pt is medically stable to transfer out of ICU once a bed is open. Cm had asked 5n liaison to follow pt as he is uninsured and may need post acute care stay at some point prior to dc. Cm following regarding dc planning.
[2021-04-15] VITALS (34 sets, daily range): BP systolic 128–164; BP diastolic 76–95
[2021-04-15 06:32] LABS: HEMOGLOBIN 6.7 gm/dL (14.0-18.0); WBC 4.7 thou/uL (4.0-11.0)
[2021-04-15 06:33] LABS: HEMATOCRIT 20.3 % (42.0-52.0); MCH 33.4 pg (26.0-34.0); MCHC 32.9 g/dL (28.0-37.0); MCV 101.7 fL (80.0-100.0); RDW 14.7 % (10.5-14.5)
[2021-04-15 06:54] LABS: CALCIUM 7.5 mg/dL (8.5-10.1); CREATININE 1.1 mg/dL (0.7-1.3); POTASSIUM 3.1 mmol/L (3.5-5.1)
--- NOTE | 2021-04-15 07:24 | NUR ---
ASSUME CARE 1900. PT/VITALS STABLE. DENIES ANY PAIN. A/O TO PERSN, PLACE AND TIME. FOLLOWA COMMANDS AND ANASWERS QUESTIONS, APPROPRIATELY. ISHAAN. ON MONITOR. TOLERATING BIPAP AT 100% FIO2. PT IN PRONE POSITION THROUGH THE NIGHT. ASSESSMENT CHARTED. PROGRESSING WELL WITH POC. PLAN IS TO CONTINUE TO MONITOR AND MANAGE RESP FUNCTION/ELECTROLYTES. WILL CONITUE TO FOLLOW WITH POC
--- NOTE | 2021-04-15 07:38 | NUR ---
ASSUME CARE 1900. PT/VITALS STABLE. DENEIS ANY PAIN. A/O X 3. FORGETFULNESS NOTED. ANSWERS QUESTIONS APPROPRIATELY AND FOLLOWS COMMANDS. SR ON MONITOR. ST NOTED WITH ACTIVITY. DIARRHEA NOTED. ROOM AIR WITH SATS IN MID-HIGH 90s. ASSESSMENT CHARTED. PROGRESSING WELL WITH POC. CHEST TUBE IN PLAVCE WITH NO TIDALING OR AIR LEAK, TO NEGATIVE 20 SUCTION. SEROUS DRAIANGE NOTED. HENDERSON IN PLACE. ADEQUATE URINE OUTPUT. PLAN IS TO TRANSFEER PT TO MEDSURGE UNIT WHEN BED AVAILABLE. WILL CONTINUE TO MONITOR AND FOLLOW WITH POC
[2021-04-15 10:07] LABS: CD3 % 77.7 % (57.5-86.2); CD4 % 2.4 % (30.8-58.5); CD4:CD8 0.03 (0.92-3.72)
[2021-04-15 10:29] LABS: EOSINOPHILS 0.2 % (0.0-3.0); RBC 2.06 mil/uL (4.50-6.00)
[2021-04-15 10:31] LABS: BASOPHILS 0.3 % (0.0-2.0); HEMATOCRIT 20.8 % (42.0-52.0); HEMOGLOBIN 6.6 gm/dL (14.0-18.0); LYMPHOCYTES 5.7 % (24.0-44.0); MCHC 31.7 g/dL (28.0-37.0); MONOCYTES 6.2 % (1.0-8.0); PLATELET COUNT 309 thou/uL (150-400); POLYS 87.6 % (36.0-66.0); RDW 14.6 % (10.5-14.5); WBC 4.6 thou/uL (4.0-11.0)
[2021-04-15 20:49] LABS: HEMOGLOBIN 8.1 gm/dL (14.0-18.0)
--- NOTE | 2021-04-15 22:27 | NUR ---
PT ORIENTED X2-3, FORGETFUL BUT COOPERATIVE. DENIES ANY PAIN OR SOA. RIGHT LATERAL CHEST TUBE PATENT AND INTACT. VSS. AFEBRILE. SPO2> 92% ON RA. FALL PRECAUTIONS IN PLACE. REPORT GIVEN TO MOLLY QUACH AROUND 2214.
[2021-04-16] VITALS (9 sets, daily range): BP systolic 122–138; BP diastolic 58–89
--- NOTE | 2021-04-16 09:58 | HC ---
[facility] [place] [address] CONSULTATION Name: AMADOR CEDILLO Room #: [facility] ADM IN M.R.#: [id number] Admission: 04/02/21 Attend Phys: Violetta Claire Discharge: Date of : 75 Report #: [id number] THIS REPORT FOR: cc: FAM - No family physician/PCP FAM - No family physician/PCP Ketan Hamilton ~ DATE OF SERVICE: 04/13/2021 CONSULTING DOCTOR: Dr. Nath. OTHER DOCTORS ON PATIENT'S CASE: Dr. Giron, Dr. Mcmillan, Dr. Coleman, Dr. Han, Dr. Goddard, and Dr. Lyons. HISTORY OF PRESENT ILLNESS: The patient is a pleasant 45-year-old male with a history of asthma and alcohol, tobacco and marijuana abuse. The patient states that he has had prior to admission about 2 weeks of loss of appetite, increased dyspnea and shortness of breath. The patient arrives in the Emergency Department and found to be in acute kidney injury with a creatinine of 12.12, respiratory distress. Potassium levels greater at 7.6. The patient was given emergent hemodialysis and at that time, went into a more profound respiratory failure and had to emergently intubate the patient. The patient was subsequently admitted to ICU, remained on the ventilation until 04/06. Yesterday was found to have near complete collapse of right lung, pleural pigtail placed to right lung space by Interventional Radiology yesterday with near resolution. The patient still remains with an apical pneumothorax on the right side, pleural chest tube draining 250 mL of serosanguineous fluid in the last 12 hours with a negative air leak. The patient at this time is now on room air oxygen. The patient does remain tachycardic from 110-130's appears to have sinus tachycardia. PAST MEDICAL HISTORY: Asthma, ETOH abuse, marijuana use, tobacco use. PAST SURGICAL HISTORY: The patient reports having a left wrist internal fixation as a child. SOCIAL HISTORY: He is single, has one child 24 years of age, healthy as the patient can recall, 1 pack a day smoker x21 years. Alcohol daily at range of 3-6 beers with daily marijuana use. FAMILY HISTORY: Mother is living 65 years of age without any health issues as per patient. Father 66 years of age, history of hypertension and asthma. ALLERGIES: The patient denies any medical allergies. MEDICATIONS: His home medications are as reported albuterol. [address] [address] CONSULTATION Name: AMADOR CEDILLO Room #: 241-P [facility] IN M.R.#: [id number] Admission: 04/02/21 Attend Phys: Violetta Claire Discharge: Date of : 75 Report #: [id number] REVIEW OF SYSTEMS: The patient complains of fatigue, difficulty sleeping, decreased appetite. HEENT: Denies any headache, vertigo or hearing loss. RESPIRATORY: Reports shortness of breath and dyspnea on exertion. Denies any orthopnea. Reports wheezing and coughing. Coughing is nonproductive at this time. CARDIOVASCULAR: The patient did complain of chest pain, which is no longer going on at this point, but it was prior to admission. He denies any jaw pain, arm pain or murmurs. SKIN: Denies any rashes, psoriasis or eczema. ENDOCRINE: Denies cold feet, night sweats. Does complain of some lack of concentration. GASTROINTESTINAL: Denies nausea, vomiting. Does have some diarrhea and denies constipation. GENITOURINARY: Denies urinary frequency, bloody urination or painful urination; however, currently has a Bautista catheter in and complaints are relative prior to admission. NEUROLOGIC: Denies any seizures or neuropathies. PSYCHOLOGIC: Denies any hallucination, depression or anxiety. MUSCULOSKELETAL: Denies joint pain, stiffness or swelling. IMMUNOLOGIC: Denies any lupus, rheumatoid arthritis or celiac disease. PHYSICAL EXAMINATION: VITAL SIGNS: Blood pressure is 154/94, pulse rate 130, respiratory rate 20, pulse rate also shows P waves, sinus rhythm, sinus tachycardia. The patient is currently on room air. The patient with an O2 sat of 100% currently. GENERAL: The patient is well-developed, well-nourished, has normal speech and mentation. HEENT: Eyes are PERRLA. He is normocephalic. Gaze appearing conjugate in all positions. No evidence of nystagmus. CARDIOVASCULAR: Regular rate and rhythm, tachycardic. No murmurs, gallops, or thrills noted. No carotid bruits detected. LUNGS: Crackles to the right lower lobe. Upper lobes clear. Left lower lobe clear. ABDOMEN: Soft, nontender. Bowel sounds are present in all 4 quadrants. MUSCULOSKELETAL: He moves all 4 extremities with 5/5 strength. NEUROLOGIC: Cranial nerves 2-12 are examined and intact. LABORATORY DATA: Today, sodium 153, potassium 3.3, chloride 116, CO2 of 28, BUN is 27, creatinine is 1.7, creatinine previously 12.2 on arrival on 04/02 and glucose 144. White blood cells 6.6, hemoglobin 7.8, hematocrit 23.6, platelets are 323. The patient does currently have a Bautista catheter in place. He is currently on room air as previously mentioned. ASSESSMENT: Spontaneous pneumothorax secondary to right lower lobe pneumonia. [address] [address] CONSULTATION Name: AMADOR CEDILLO Room #: 241-P [facility] IN M..#: [id number] Admission: 04/02/21 Attend Phys: Violetta Claire Discharge: Date of : 75 Report #: [id number] The patient currently has a pleural pigtail placed without air leak with 250 mL of serosanguineous fluid drainage in the last 12 hours, acute respiratory failure, improving. Acute kidney injury, resolved. The patient has on admission Gram-positive bacteremia, septic shock, which is improved. Streptococcus pneumoniae pneumonia, right lower lobe and find on lab positive human immunodeficiency virus antibodies. PLAN: The patient is currently on micafungin and Pen G as per Infectious Disease, has a right pleural pigtail placed with a small apical pneumo on chest x-ray with 250 mL drainage of serosanguineous fluid in the last 12 hours without an air leak. On CTA standpoint, Dr. Marin will see the patient later today. We will continue to monitor pleural chest tube. We will keep an eye on suction at this point. Get a chest x-ray in the morning. <ELECTRONICALLY SIGNED> By: IRINA Lu 04/16/21 0958 [id number] IRINA Lu /nt
--- NOTE | 2021-04-16 11:54 | NUR ---
CM REVIEWED CHART AND SPOKE WITH NURSE. PT IS NOT ICU STATUS SO CARE NOT DISCUSSED IN ROUNDS THIS DAY. [facility] HAD MET WITH PT AND HAD COMPLETED A [place] MEDICAID APPLICATION. PT HAD CHEST TUBE THAT IS WATER SEALED AND HE IS TOLERATING THAT. CARE TEAM INDICTED CHEST X RAY IN AM AND THAT THEY ANTICPATE POSSIBLE REMOVAL SOON. PT IS ON MICAFUNGIN AND PENICILLIN. PT NEWLY DIAGNISED HIV AND NECROTIZING PNA. PT MAY NEED ACUTE REHAB AT SOME POINT PRIOR TO DC. THERAPY HAD BEEN REORDERED ALTHOUGH CARE TEAM INDICATED EVALS AREN'T YET APPROPRIATE. CM FOLLOWING REGARDING DC PLANNING NEEDS.
--- NOTE | 2021-04-16 19:07 | NUR ---
SPOKE TO PATIENT MOTHER, JAXON, TODAY TO UPDATE PATIENT CONDITION AND POC. SWITCHED CT FROM SUCTION TO WATER SEAL, PATIENT TOLERATING WELL. MUCH MORE AWAKE AND ALERT THAN PREVIOUS SHIFTS, GOOD PO INTAKE AND APPROPRIATE BEHAVIORS. AWAITING BED AVAILABILITY TO TRANSFER TO MED-SURG FLOOR.
[2021-04-17 04:10] VITALS: BP 138/93
[2021-04-17 04:29] LABS: MAGNESIUM 1.6 mg/dL (1.8-2.4); POTASSIUM 3.4 mmol/L (3.5-5.1)
[2021-04-17 06:20] VITALS: BP 145/91
--- NOTE | 2021-04-17 06:27 | NUR ---
PT ARRIVED INTO ROOM 206 FROM THE . HE IS ALERT AND ORIENTED X 3.HE IS ABLE TO STAND AND FOLLOW ALL INSTRUCTIONS. CHESTUBE TO RIGHT ANTERIOR CHEST.HE IS 97 ON ROOM AIR.DENIES PAIN.ASKING ABOUT BREAK AST. CHES TUBE IS PATENT. HE HAS BEEN PROVIDED A URINAL. TEMP OF 99.2. MED SUG. ASKING ABOU HIS POC-HOPING HE COULD HOME FOR KHUSHBOO. K+ AND MANESIUM INFUSING. CALL LIGHT WITHIN REACH, FALL PREC IN PLACE. WILL CONTINUE WITH POC.
--- NOTE | 2021-04-17 06:28 | NUR ---
REPORT GIVEN TO MOLLY CHAVEZ. PT TRANSPORTED TO CCU VIA WHEELCHAIR BY THIS RN. PT ALERT AND ORIENTED X3. CHEST TUBE TO WATER SEAL. PT WAS LAST POTASSIUM AND MAGNESIUM WAS LOW. NEW BAGS SCANNED AND WAS TRASNFERRED TO CCU. POTASSIUM AND MAGNESIUM INFUSING. HENDERSON CATHETER OUT. PT DUE TO VOID. PT FAMILY WAS MADE OF PATIENT TRANSFER TO CCU. CONTINUE TO MONITOR.
[2021-04-17 07:37] VITALS: BP 134/85
[2021-04-17 11:25] VITALS: BP 131/78
[2021-04-17 14:25] LABS: MAGNESIUM 1.4 mg/dL (1.8-2.4); POTASSIUM 3.2 mmol/L (3.5-5.1)
[2021-04-17 15:45] VITALS: BP 129/66
[2021-04-17 20:15] VITALS: BP 147/92
[2021-04-18 04:45] VITALS: BP 135/89
--- NOTE | 2021-04-18 06:03 | NUR ---
PATIENT CARES WHERE ASSUMED AT SHIFT CHANGE, PATIENT WAS ASSESSSED AND MEDS WHERE PASSED. PATIENT CONTINUED DURING THIS SHIFT TO HAVE A LOT OF FLAULANCE. CHEST TUBE IS IN PLACE AND JEREMY IS STILL APPERANT IT HAS BEEN REENFORCED. ROUNDS DONE AND THE BED IS IN A LOW AND LOCKED POSITION
[2021-04-18 06:16] LABS: CALCIUM 7.6 mg/dL (8.5-10.1); CREATININE 0.9 mg/dL (0.7-1.3); POTASSIUM 3.4 mmol/L (3.5-5.1)
[2021-04-18 08:00] VITALS: BP 147/74
[2021-04-18 11:00] VITALS: BP 144/76
[2021-04-18 15:00] VITALS: BP 138/78
[2021-04-18 19:54] VITALS: BP 150/86
--- NOTE | 2021-04-19 03:36 | NUR ---
ASSESSMENTS CHARTED, MEDS CHARTED GIVEN. PATIENT RESTING IN BED DURING SHIFT. PATIENT REMINDED TO USE IS FREQUENTLY, HE IS USING IT CORRECTLY AND GETTING IT TO 1.5 LITERS. PATIENT RECEIVING ANTIBIOTIC THERAPY, ON ELECTROLYTE PROTOCOL.
[2021-04-19 04:07] LABS: ALBUMIN 1.6 g/dL (3.4-5.0); CALCIUM 7.8 mg/dL (8.5-10.1); CREATININE 0.9 mg/dL (0.7-1.3); MAGNESIUM 1.1 mg/dL (1.8-2.4); POTASSIUM 3.6 mmol/L (3.5-5.1); TOTAL BILIRUBIN 0.7 mg/dL (0.2-1.0); TOTAL PROTEIN 5.7 g/dL (6.4-8.2)
[2021-04-19 04:48] VITALS: BP 144/96
[2021-04-19 07:57] VITALS: BP 130/86
[2021-04-19 15:48] VITALS: BP 151/99
[2021-04-19 20:09] VITALS: BP 172/89
[2021-04-20 00:48] LABS: URINE BILIRUBIN NEGATIVE (Negative); URINE BLOOD NEGATIVE (Negative); URINE CLARITY CLEAR; URINE COLOR YELLOW; URINE GLUCOSE-RANDOM* NEGATIVE (Negative); URINE KETONES NEGATIVE (Negative); URINE LEUKOCYTES-REFLEX NEGATIVE (Negative); URINE NITRITE-REFLEX NEGATIVE (Negative); URINE PROTEIN (DIPSTICK) NEGATIVE (Negative); URINE SPECIFIC GRAVITY <= 1.005 (1.005-1.035); URINE UROBILINOGEN 0.2 E.U./dl (0.2-1.0)
[2021-04-20 01:18] VITALS: BP 153/106
--- NOTE | 2021-04-20 02:36 | NUR ---
ASSESSMENTS CHARTED, MEDS CHARTED GIVEN. PATIENT'S SISTER CALLED TO SAY SHE HAD VISITED THE PATIENT ON KHUSHBOO AND TESTED POSITIVE FOR COVID THE NEXT DAY. PATIENT PLACED IN RULE OUT ISOLATION, 2 COVID TEST WERE PERFORMED. PATIENT ON ABX THERAPY.
[2021-04-20 05:15] VITALS: BP 152/88
[2021-04-20 05:18] LABS: ABSOLUTE NEUTROPHILS 4.7 thou/uL (1.4-8.2); BASOPHILS 0.6 % (0.0-2.0); EOSINOPHILS 1.1 % (0.0-3.0); HEMATOCRIT 29.7 % (42.0-52.0); HEMOGLOBIN 9.9 gm/dL (14.0-18.0); LYMPHOCYTES 9.9 % (24.0-44.0); MCH 32.4 pg (26.0-34.0); MCHC 33.3 g/dL (28.0-37.0); MCV 97.4 fL (80.0-100.0); MONOCYTES 6.1 % (1.0-8.0); PLATELET COUNT 271 thou/uL (150-400); POLYS 82.3 % (36.0-66.0); RBC 3.05 mil/uL (4.50-6.00); RDW 18.1 % (10.5-14.5); WBC 5.8 thou/uL (4.0-11.0)
[2021-04-20 05:39] LABS: ALBUMIN 1.7 g/dL (3.4-5.0); CALCIUM 7.9 mg/dL (8.5-10.1); POTASSIUM 3.3 mmol/L (3.5-5.1); TOTAL BILIRUBIN 0.8 mg/dL (0.2-1.0); TOTAL PROTEIN 6.1 g/dL (6.4-8.2)
[2021-04-20 07:38] VITALS: BP 140/73
[2021-04-20 15:25] VITALS: BP 140/73
[2021-04-20 15:34] VITALS: BP 108/68
--- NOTE | 2021-04-20 15:34 | NUR ---
Met with georgina who is newly diagnosed HIV. Requested if can contact Mohsen Modi for patient. He was agreeable. Sp with Irma at [facility]. She plans to call patient in room today to determine if he wants to sign up for their service. Medicaid application in process. [facility] can assist with medication assistance at nm.
[2021-04-20 20:15] VITALS: BP 135/91
[2021-04-21 02:00] VITALS: BP 140/73
[2021-04-21 04:44] VITALS: BP 128/85
[2021-04-21 04:54] LABS: ALBUMIN 1.6 g/dL (3.4-5.0); CALCIUM 8.2 mg/dL (8.5-10.1); CREATININE 0.9 mg/dL (0.7-1.3); PHOSPHORUS 3.9 mg/dL (2.5-4.9); POTASSIUM 3.9 mmol/L (3.5-5.1); TOTAL BILIRUBIN 0.8 mg/dL (0.2-1.0); TOTAL PROTEIN 6.2 g/dL (6.4-8.2)
[2021-04-21 05:06] LABS: BASOPHILS 0.6 % (0.0-2.0); EOSINOPHILS 1.2 % (0.0-3.0); HEMATOCRIT 29.4 % (42.0-52.0); HEMOGLOBIN 9.9 gm/dL (14.0-18.0); MCH 32.8 pg (26.0-34.0); MCHC 33.8 g/dL (28.0-37.0); MCV 97.1 fL (80.0-100.0); PLATELET COUNT 248 thou/uL (150-400); POLYS 83.2 % (36.0-66.0); RBC 3.03 mil/uL (4.50-6.00); RDW 18.3 % (10.5-14.5)
[2021-04-21 05:26] LABS: MAGNESIUM 0.9 mg/dL (1.8-2.4)
--- NOTE | 2021-04-21 05:28 | NUR ---
PATIENTS CARES WHERE ASSUMED AT SHIFT CHANGE. PATIENT WAS ASSESSED AND MEDS WHERE PASSEDPATIENT CONTINUES TO HAVE A LOW Mg+ LEVEL. HE IS ON LYTE PROTOCAL WILL PASS SOME Mg+ WITH HIS MORNING MEDS. IV REPLACED AT THE START OF SHIFT HIS IV WENT OUT AROUND 1300. BY THE TIME IV WAS IN PLACE NURSING DID CATCH UP ON ALL IV MEDS.ROUNDS WHERE DONE. THE BED IS IN A LOW AND LOCKED POSITION. THE BED ALARM IS ON.
[2021-04-21 09:40] VITALS: BP 144/87
[2021-04-21 16:27] VITALS: BP 147/86
--- NOTE | 2021-04-21 16:29 | NUR ---
ASSESSMENT CHARTED - MEDS PER MAR - ELLYN SMALL AMOUNTS OF DIET AND FLUIDS. REQUESTED STRAWBERRY ENSURE FROM KITCHEN. UP TO THE BSC AND TO THE WHEELCHAIR TO GO FOR CT OF CHEST THIS AFTERNOON. CHEST TUBE REMAINS INSITU NO BUBBLING OR TIDALING NOTED - CHEST TUBE HAD ALTPLACE INSERTED THIS AM AND THEN CLAMPED X 1 HOUR. REMAINS TO SUCTION -20CM. NO CO'S OR PAIN OR NAUSEA. APPEARS TO BE COMFORTABLE TO THE PRESENT TIME.
[2021-04-21 20:00] VITALS: BP 129/77
[2021-04-22 04:00] VITALS: BP 125/71
[2021-04-22 07:41] VITALS: BP 116/81
--- NOTE | 2021-04-22 13:50 | NUR ---
Spoke with patient who reports Irma from [employer] did reach out to patient. He is in process of enrolling for [facility] HIV benefit. Patient reports some weakness. Spoke with phys regarding therapy evals. Patient may be candidate for 5N if needed. cont to follow
[2021-04-22 15:49] VITALS: BP 139/75
--- NOTE | 2021-04-22 20:03 | NUR ---
PT IS AXOX4, PLEASANT; VSS, AFEBRILE THROUGHOUT SHIFT, SR ON THE MONITOR; PT HAS CHEST TUBE IN R FLANK, -20 SUCTION. PT HAS IMPROVED APPETITE THROUGH SHIFT, ABLE TO ORDER OWN FOOD FROM MENU. PT HAS NEW IV PLACED IN R FA, RECEIVING IV ABX. PT DENIES PAIN, BUT WANTS TO DO MORE ACTIVITY TOLERATED. CASE MGMT CONSULTED, DR CHAVES CONSULTED. POC IS TO CONTINUE TO MONITOR VS, PT HAS HAD LOW GRADE FEVER DURING PREVIOUS NIGHT SHIFTS. PROMOTE ACTIVITY TOLERATED, AND RECOMMEND PT/OT EVAL AND PROMOTE ACTIVITY. LOW FALL PRECAUTIONS IN PLACE. NO CONCERNS AT THIS TIME.
[2021-04-22 20:19] VITALS: BP 137/85
[2021-04-23 03:42] VITALS: BP 116/60
[2021-04-23 05:04] LABS: ALBUMIN 1.7 g/dL (3.4-5.0); CALCIUM 7.9 mg/dL (8.5-10.1); CREATININE 0.9 mg/dL (0.7-1.3); PHOSPHORUS 3.4 mg/dL (2.5-4.9); POTASSIUM 3.8 mmol/L (3.5-5.1)
[2021-04-23 05:05] LABS: MAGNESIUM 0.9 mg/dL (1.8-2.4)
[2021-04-23 07:35] VITALS: BP 137/65
--- NOTE | 2021-04-23 08:01 | NUR ---
pt up to bsc for bm and hr jumped to st in the 140's, no c/o pain, ct to suction, resting quietly in bed thru the noc vss, report given to next shift to con't ppoc.
[2021-04-23 15:29] VITALS: BP 132/85
--- NOTE | 2021-04-23 16:46 | NUR ---
5N PLACED FOR PTFabricio GANT ON UNIT TO SEE PT THIS DAY. PT STILL HAS CHEST TUBE. PT/OT REORDERED PT HAS NOT BEEN GETTING OUT OF BED. NO ANTICIPATED DC OVER THE NEXT 3-4 DAYS.
--- NOTE | 2021-04-23 19:22 | NUR ---
ASSESSMENT CHARTED - MEDS PER JEFFREY RAGLAND DIET AND FLUIDS. UP AD DIOR IN ROOM. NO CO'S OF PAIN OR NASUEA. PT HAD CHEST TUBE VIDEO GAME TECHNICIAN POST ACTIVASE X 1 HOUR AND THEN UNCLAMPED PT WITH APPROX 70 MLS OF DRAINAGE FROM TUBE THIS SHIFT. CONSULT FOR REHAB AND SEEN BY PT/OT THIS SHIFT. NO CO'S AT THE PRESENT TIME. APPEARS TO BE RESTING COMFORTABLY.
[2021-04-23 19:56] VITALS: BP 128/75
[2021-04-24 03:32] VITALS: BP 131/81
[2021-04-24 05:01] LABS: ALBUMIN 1.8 g/dL (3.4-5.0); CALCIUM 8.4 mg/dL (8.5-10.1); CREATININE 0.8 mg/dL (0.7-1.3); MAGNESIUM 1.1 mg/dL (1.8-2.4); PHOSPHORUS 3.2 mg/dL (2.5-4.9); POTASSIUM 4.2 mmol/L (3.5-5.1)
--- NOTE | 2021-04-24 05:04 | NUR ---
PT HR UP TO 150'S WITH ACTIVITY OTHER AGUIRRE ST IN LOW 100'S, CT WITH SERIOSANG FLUID DRAINING, VOIDING PER URINAL, NO C/O PAIN, WILL CON'T TO MONITOR PER PPOC.
[2021-04-24 07:28] VITALS: BP 92/68
--- NOTE | 2021-04-24 09:09 | NUR ---
ORDERS RECEIVED TO RE-EVAL Pt. OBSERVED Pt GET OUT OF BED, STAND AND AMBULATE IN ROOM HOLDING ONTO HIS CHEST TUBE. Pt STATES HE'S AMBULATING TO THE BATHROOM WITHOUT DIFFICULTY AND DOES NOT FEEL HE IS HAVING ANY ISSUES WITH HIS BALANCE OR MOBILITY. Pt DECLINING A FORMAL RE-EVALUATION BUT APPEARS SAFE FOR HOME WHEN MEDICALLY CLEAR
[2021-04-24 15:12] VITALS: BP 106/57
--- NOTE | 2021-04-24 19:18 | NUR ---
ASSESSMENT CHARTED - MEDS PER JEFFREY - ELLYN DIET AND FLUIDS. UP IN ROOM TOLERATED - NO CO'S OF PAIN OR NAUSEA. CHEST TUBE WITH ALTPLASE AND CLAMPED X 1 HOUR - ATRIUM CHANGED - 200CC OF DRAINAGE. NO CO'S AT THE PRESENT TIME.
[2021-04-24 20:22] VITALS: BP 124/73
--- NOTE | 2021-04-25 04:42 | NUR ---
Pt. rested quietly at intervals during the night when checked on during frequent rounds. Chest tube to right lung is patent. He offers no c/o shortness of air or pain.
[2021-04-25 04:54] LABS: ALBUMIN 1.9 g/dL (3.4-5.0); CALCIUM 8.7 mg/dL (8.5-10.1); MAGNESIUM 1.5 mg/dL (1.8-2.4); PHOSPHORUS 4.3 mg/dL (2.6-4.7); POTASSIUM 4.2 mmol/L (3.5-5.1)
[2021-04-25 05:05] VITALS: BP 70/47
[2021-04-25 07:00] VITALS: BP 106/72
--- NOTE | 2021-04-25 15:29 | NUR ---
Assumed care of pt this AM. Pt is A&O x4, on RA, SA/ST on the monitor. Pt denies any pain. Chest tube in place & patent. Pt w/ BM today. Pt up to BSC independently. Pt calls out appropriately. Fall procautions in place & education performed. Frequent rounding in place.
[2021-04-25 16:30] VITALS: BP 113/74
[2021-04-25 20:15] VITALS: BP 130/63
--- NOTE | 2021-04-26 03:04 | NUR ---
ASSESSMENTS CHARTED, MEDS CHARTED GIVEN. PATIENT RESTING IN ROOM, EATING SALAD AND PIZZA. SAYS HE NEEDS TO BULK UP SINCE HE HAS LOST 50 LBS WHILE BEING HERE. INTERESTED IN RETURNING TO THE GYM AND BUILDING BACK HIS CORE. UP AT DIOR IN ROOM. CHEST TUBE STILL IN PLACE, NO OUTPUT DURING DAYSHIFT. CONTINUING ABX THERAPY.
[2021-04-26 04:45] VITALS: BP 120/71
[2021-04-26 07:45] VITALS: BP 65/56; BP 95/65
[2021-04-26 07:48] LABS: ALBUMIN 2.1 g/dL (3.4-5.0); CALCIUM 8.6 mg/dL (8.5-10.1); MAGNESIUM 1.5 mg/dL (1.8-2.4); PHOSPHORUS 4.8 mg/dL (2.6-4.7); POTASSIUM 4.7 mmol/L (3.5-5.1)
--- NOTE | 2021-04-26 12:54 | NUR ---
Assumed care of pt this AM. Pt is A&O x4, on RA, ST on the monitor. Pt denying pain. Chest tube still in place without output or tidaling. Provider aware. Pt w/ no concerns. Pt up to BSC independently. Frequent rounding in place.
[2021-04-26 16:00] VITALS: BP 118/74
[2021-04-26 19:47] VITALS: BP 114/69
[2021-04-27 04:19] VITALS: BP 116/74
--- NOTE | 2021-04-27 06:24 | NUR ---
ASSESSMENTS CHARTED, MEDS CHARTED GIVEN. SINUS TACH ON TELEMETRY. PATIENT'S MAGNESIUM LEVEL STILL LOW AT START OF SHIFT. REPLACEMENT GIVEN PER PROTOCOL. PLAN OF CARE TO CONTINUE ABX THERAPY. CHEST TUBE TO BE ADDRESSED.
[2021-04-27 07:50] VITALS: BP 115/69
[2021-04-27 12:19] VITALS: BP 108/70
[2021-04-27 12:40] LABS: HEMATOCRIT 25.9 % (42.0-52.0); HEMOGLOBIN 8.8 gm/dL (14.0-18.0); MCH 32.5 pg (26.0-34.0); MCHC 33.9 g/dL (28.0-37.0); MCV 95.9 fL (80.0-100.0); RBC 2.7 mil/uL (4.50-6.00); RDW 18.1 % (10.5-14.5); WBC 5.1 thou/uL (4.0-11.0)
[2021-04-27 12:55] LABS: APTT 28.8 Seconds (24.5-32.8); INR 0.95; PROTIME 10.4 Seconds (10.5-12.1)
[2021-04-27 16:30] VITALS: BP 146/63
--- NOTE | 2021-04-27 17:51 | NUR ---
PATIENT RESTED IN BED THROUGHOUT THE SHIFT. UP 4 TIMES TO BEDSIDE COMMODE WITH ONE BOWEL MOVEMENT. DENIED PAIN OR ANY OTHER COMPLAINTS THROUGHOUT SHIFT. SPOKE WITH PATIENT ABOUT BEING NPO AFTER MIDNIGHT AND THAT HIS SNACKS WOULD BE MOVED TO PREVENT TEMTATION. PATIENT STATED THAT WOULD BE FINE.
[2021-04-27 20:30] VITALS: BP 105/69
[2021-04-28 03:57] LABS: MAGNESIUM 1.2 mg/dL (1.8-2.4); POTASSIUM 4.6 mmol/L (3.5-5.1)
[2021-04-28 05:30] VITALS: BP 110/70
[2021-04-28 05:33] VITALS: BP 189/110
[2021-04-28 08:00] VITALS: BP 108/62
[2021-04-28 15:30] VITALS: BP 119/72
--- NOTE | 2021-04-28 17:30 | NUR ---
CONTINUE TO FOLLOW FOR DC NEEDS. CASE DISCUSSED WITH CARE TEAM. PTS CHEST TUBE REPOSITIONED TODAY AND HE CONTINUE ON IV ABTS. HIS MEDICAID NISA SUBMITTED PER [facility]. THERAPY RECOMMENDING HH AT DC VERSES 5N REBAB. HOWEVER, HH MAY NOT BE AN OPTION PT DOES HAVE INSURANCE. DC TIME FRAME UNCERTAIN D/T CHEST TUBE. WILL CONTINUE TO FOLLOW.
--- NOTE | 2021-04-28 17:49 | NUR ---
PATIENT WENT DOWN FOR A CHEST TUBE REPLACEMENT TODAY, PATIENT CAME BACK FROM PROCEDURE, DENIED ANY COMPLAINTS. CHEST TUBE DRESSING C/D/I.
[2021-04-28 20:15] VITALS: BP 102/56
[2021-04-29 04:30] VITALS: BP 85/45
[2021-04-29 07:46] VITALS: BP 93/49
[2021-04-29 11:17] VITALS: BP 97/60
[2021-04-29 15:13] VITALS: BP 89/44
[2021-04-29 19:41] VITALS: BP 90/55
[2021-04-30] VITALS (7 sets, daily range): BP systolic 76–102; BP diastolic 42–68
--- NOTE | 2021-04-30 03:57 | NUR ---
RECEIVED PATIENT AT 1900H.PATIENT IS ALERT AND ORIENTED X4.WITH CHEST CHEST TUBE AT RIGHT SIDE INTACT, ON -20 SUCTION PRESSURE.MEDS GIVEN PER JUN.ALL NEEDS ATTENDED.TO CONTINOUSLY MONITOR.
--- NOTE | 2021-04-30 16:22 | NUR ---
Assumed care of pt this AM. Pt is oriented x4, drowsy. Pt states he didn't sleep well last night & has spent most of day sleeping. ST on the monitor, pt on RA. Chest tube w/ output but without tidaling. Pt hypotensive this morning, orders received from provider & carried out. Pt reports pain in rt side from where chest tube is inserted but doesn't want medication. Fall precautions in place.
--- NOTE | 2021-04-30 16:22 | NUR ---
PT HAS HAD SOME IMPROVEMENT WITH PNEUMOTHORAX. CM WILL CONTINUE TO FOLLOW FOR DC NEEDS. THERPAY RECOMMENDING HH. UNSURE IF THAT IS AN OPTION WITH NO INS. WILL CONTINUE TO FLLOW FOR DC NEEDS.
[2021-05-01] VITALS (7 sets, daily range): BP systolic 101–124; BP diastolic 53–64
--- NOTE | 2021-05-01 04:25 | NUR ---
PT IS A/O X4 AND IS UP WITH ASSISTANCE. BP LOW AT START OF SHIFT. UPON RECHECK WAS WNL. FEVER IN START OF SHIFT. PRN TYLENOL GIVEN DIRECTED. MEDICATIONS GIVEN PER JUN. FALL PRECAUTIONS IN PLACE, CALL LIGHT IS WITHIN REACH. CURRENT TEMPERATURE IS WNL. PT CALLS OUT APPROPRIATELY FOR ASSISTANCE.
--- NOTE | 2021-05-01 09:35 | NUR ---
Assumed care of pt this AM. Pt is A&O x4, on RA, ST on the monitor. Pt with fever overnight but afebrile this AM. BP improved since yesterday. Chest tube still in place & patent. Pt up to BSC independently. Pt w/ no complaints this AM.
--- NOTE | 2021-05-01 16:17 | NUR ---
PT CONTINUES TO HAVE IMPROVEMENT WITH PNEUMOTHORAX. CM WILL CONTINUE TO FOLLOW FOR DC NEEDS. PT MAY NEED MEDS VOUCHED UPON DC. UNABLE TO ON WEEKENDS. CHEST TUBE NOT ANTICIPATED TO BE REMOVED UNTIL TUESDAY. PT WILL BE HERE THROUGH THE WEEKEND. CM WILL FOLLOW AND MAKE RECOMMENDATIONS FOR DC ONCE MEDICALLY STABLE.
[2021-05-02 03:38] VITALS: BP 94/49
[2021-05-02 04:31] VITALS: BP 111/59
--- NOTE | 2021-05-02 04:34 | NUR ---
NURSING NOTE: SHIFT SUMMARY: ASSUMED CARE OF PT FROM SYMONE BARNES AT 0315 TODAY. PT ALERT AND ORIENTED X4, MOVES ALL EXTREMITIES AND FOLLOWS ALL COMMANDS. CT TO TO RLL INTACT TO SUCTION AT -20. APPROXIMATELY 20CC SEROUS / SANGUINOUS DRAINGE NOTED. PT DENIES PAIN AT THIS TIME. ALL VSS AND ASSESSMENTS CHARTED.
[2021-05-02 08:33] VITALS: BP 113/51
[2021-05-02 15:08] VITALS: BP 107/70
--- NOTE | 2021-05-02 16:46 | NUR ---
ASSESSMENT CHARTED - MEDS PER JUN - NO CO'S OF PAIN OR NAUSEA. ELLYN DIET AND FLUIDS. PT UP IN ROOM TOLERATED. CHEST TUBE REMAINS INSITU -NOVER TIDALIING OR BUBBLING. PT WITH NO CO'S AT THE PRESENT TIME.
[2021-05-02 19:47] VITALS: BP 109/71
[2021-05-03 03:27] VITALS: BP 100/68
--- NOTE | 2021-05-03 07:10 | NUR ---
PT RESTING QUIETLY IN ROOM, UP ADLIB, VSS, NO C/O PAIN, CT TO SUCTION, CON'T TO MONITOR PER PPOC.
[2021-05-03 07:23] VITALS: BP 109/67
[2021-05-03 15:18] VITALS: BP 116/66
--- NOTE | 2021-05-03 18:19 | NUR ---
ASSESSMENT CHARTED - MEDS PER JUN - NO CO'S OF PAIN OR NAUSEA. UP IN ROOM DESIRED. CT TUBE REMAINS TO 20 CM NEG SUCTION. NO BUBBLING OR TIDDLING OF THE TUBE. CHEST XRAY COMPLETED ORDERED. NO CO'S AT THE PRESENT TIME.
[2021-05-03 19:49] VITALS: BP 121/76
[2021-05-04 04:00] VITALS: BP 115/72
[2021-05-04 08:00] VITALS: BP 118/80
--- NOTE | 2021-05-04 09:00 | NUR ---
PT RESTING QUIETLY IN ROOM THRU THE NOC, NO C/O PAIN, VSS, UP ADLIB IN ROOM, ASSESSMENTS CHARTED, CT WITH 40ML OUT TODAY. PT HOPES TO GO HOME SOON WILL CON'T TO MONITOR PER PPOC.
[2021-05-04] MEDS ORDERED: CEFUROXIME500 MG PO ×2 (09:03→13:47)
[2021-05-04] MEDS ORDERED: MAGNESIUM250 M1 PO ×2 (09:07→13:47)
[2021-05-04 11:20] VITALS: BP 117/79
[2021-05-04 12:10] VITALS: BP 140/73
--- NOTE | 2021-05-04 14:44 | NUR ---
CM MET WITH PT THIS DAY. PT MEDICALLY STABLE TO DC HOME. CM VOUCED FOR DISCHARGE MEDICATIONS. COST $29.19. 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 PT INDICATED TO THIS CM THAT HE HAS A RIDE HOME FROM HIS SISTER OR HER FATHER. THIS CM SPOKE WITH MALAIKA WITH [facility] WHO INDICATED SHE FOLLOWS PT AFTER DISCHARGE AND ALTHOUGH PT WILL NOT F/U WITH DR BRAR SHE WILL ENSURE HE IN FACT DOES HAVE A F/U APPT MADE. SHE REPORTED PATIENT HAS LIST OF PROVIDERS. NO FURTHER CM NEEDS AT THIS TIME.
[2021-05-04 15:42] VITALS: BP 140/73
--- NOTE | 2021-05-04 16:08 | NUR ---
PATIENT DISCHARGED HOME, NO QUESTIONS OR CONCERNS AT TIME OF DC. IV AND TELE REMOVED. TAKEN OUT BY WHEELCHAIR WITH STAFF TO AWAITING CAR.
== END 2021-05-04 17:28 | disposition home or self-care (01) | DRG 974 ==
LOC: ER 12:10 → EROBS 15:44 → ICU 17:37 → 4S 04-10 16:36 → ICU 04-13 09:50 → 2N 04-17 06:10
PROVIDERS: Hospitalist; Internal Medicine; Internal Medicine Nephrology; Internal Medicine Pulmonary Disease; Nurse Practitioner; Nurse Practitioner Family; Pediatrics; Radiology Diagnostic Radiology; Specialist; ADMIT Hospitalist; ATTEND Hospitalist
DX: A40.9 Streptococcal sepsis, unspecified (principal); E43 Unspecified severe protein-calorie malnutrition; B20 Human immunodeficiency virus [HIV] disease; R65.21 Severe sepsis with septic shock; G92.8 Other toxic encephalopathy; J96.21 Acute and chronic respiratory failure with hypoxia; J13 Pneumonia due to Streptococcus pneumoniae; N17.0 Acute kidney failure with tubular necrosis; J93.83 Other pneumothorax; J91.8 Pleural effusion in other conditions classified elsewhere; J45.909 Unspecified asthma, uncomplicated; E86.0 Dehydration; E87.5 Hyperkalemia; R74.01 Elevation of levels of liver transaminase levels; F12.90 Cannabis use, unspecified, uncomplicated; F19.10 Other psychoactive substance abuse, uncomplicated; K70.40 Alcoholic hepatic failure without coma; N18.9 Chronic kidney disease, unspecified; K70.10 Alcoholic hepatitis without ascites; E83.42 Hypomagnesemia; K70.30 Alcoholic cirrhosis of liver without ascites; B37.9 Candidiasis, unspecified; Z20.822 Contact with and (suspected) exposure to COVID-19; I95.9 Hypotension, unspecified; Z68.21 Body mass index [BMI] 21.0-21.9, adult; Z28.21 Immunization not carried out because of patient refusal
CPT/HCPCS: 10078; 10100; 10102; 10194; 10196; 10203; 32100; 50455; 85076